=== PATIENT | male | born 1975 | race Caucasian/White ===

== ENCOUNTER 2025-07-15 12:39 | Emergency (ER) | payer MEDICAID ==
[~2025-07-15] VITALS: Ht 170.2 cm; Wt 85.0 kg
[2025-07-15 12:47] VITALS: TEMP 36.8; O2SAT 97
[2025-07-15] MEDS ORDERED: AMLO5TAB88 MT (13:30)
[2025-07-15] MEDS: IBUPROFEN 600MG TABLET PO ONE (13:36)
[2025-07-15 13:49] VITALS: BP 219/142; PULSE 97; RESP 18; O2SAT 99
== END 2025-07-15 13:50 | disposition home or self-care (01) ==
LOC: ER 12:39
DX: M54.2 Cervicalgia (principal); I10 Essential (primary) hypertension
CPT/HCPCS: 99283